=== PATIENT | female | born 1995 | race Caucasian/White ===

== ENCOUNTER 2019-09-04 12:06 | Emergency (ER) | payer MEDICAID ==
[~2019-09-04] VITALS: Ht 160 cm; Wt 65.0 kg
[2019-09-04] MEDS ORDERED: ACETAMINOPHEN 325MG TABLET ONE (12:21)
[2019-09-04 14:19] VITALS: BP 110/65
== END 2019-09-04 17:10 | disposition left against medical advice (07) ==
LOC: ER 12:58
DX: M79.605 Pain in left leg (principal); M79.604 Pain in right leg; M54.9 Dorsalgia, unspecified; Z53.21 Procedure and treatment not carried out due to patient leaving prior to being seen by health care provider